=== PATIENT | female | born 1995 | race Two or more races ===

== ENCOUNTER 2021-12-29 03:59 | Emergency (ER) | payer MEDICAID ==
[~2021-12-29] VITALS: Ht 182.9 cm; Wt 86.4 kg
[2021-12-29 04:15] VITALS: BP 122/77
== END 2021-12-29 07:37 | disposition left against medical advice (07) ==
LOC: ER 03:59
DX: N76.0 Acute vaginitis (principal); Z53.21 Procedure and treatment not carried out due to patient leaving prior to being seen by health care provider

== ENCOUNTER 2021-12-29 15:26 | Emergency (ER) | payer MEDICAID ==
[~2021-12-29] VITALS: Ht 182.9 cm; Wt 81.8 kg
[2021-12-29 16:00] VITALS: BP 122/81
[2021-12-29 16:33] LABS: Urine Bacteria NONE SEEN /hpf (None Seen); Urine Blood TRACE /uL (Negative); Urine Specific Gravity 1.012 (1.001-1.035); Urine WBC 1 /hpf (0 - 5)
== END 2021-12-30 03:58 | disposition left against medical advice (07) ==
LOC: ER 15:26
DX: R10.2 Pelvic and perineal pain (principal); Z53.21 Procedure and treatment not carried out due to patient leaving prior to being seen by health care provider
CPT/HCPCS: 81001; 81025